=== PATIENT | female | born 1940 | race Caucasian/White ===

== ENCOUNTER → 2016-11-24 | Outpatient (CLI) | payer OTHER, MEDICARE | LOC: RAD 04:21 | DX: Z12.31 Encounter for screening mammogram for malignant neoplasm of breast (principal) ==

== ENCOUNTER → 2017-11-28 | Outpatient (CLI) | payer OTHER, MEDICARE | LOC: RAD 00:15 | DX: Z12.31 Encounter for screening mammogram for malignant neoplasm of breast (principal); I97.2 Postmastectomy lymphedema syndrome ==

== ENCOUNTER → 2017-12-15 | Outpatient (CLI) | payer OTHER, MEDICARE ==
[~2017-12-15] MED LIST: ATENOLOL 100MG100 MG PO; CENTRUM SILVER1 EAC4 PO; MAXZIDE-25 MG1 EACH PO; XALATAN2.5 ML OPHTHALMIC; ZOCOR20 MG PO
== END | disposition home or self-care (01) ==
LOC: ULTRA 12-01 06:10
DX: C50.912 Malignant neoplasm of unspecified site of left female breast (principal); I10 Essential (primary) hypertension; Z79.899 Other long term (current) drug therapy

== ENCOUNTER 2018-01-01 05:31 | Day surgery (SDC) | payer OTHER, MEDICARE ==
[~2018-01-01] VITALS: Ht 147.3 cm; Wt 59.9 kg
--- NOTE | ~2018-01-01 | EKG ---
[address] [address] ELECTROCARDIOGRAM REPORT Name: DAVID ROMERO Room #: 150-4 [facility]#: [id number] Admission: 01/01/18 Attend Phys: Kishan Choe MD Discharge: Date of : 42 Report #: [id number] THIS REPORT FOR: //name// [facility] Test Date: 2018-01-01 Test Time: 06:49:53 Pat Name: DAVID ROMERO Department: Room: 150 4 Gender: F Law Researcher: MIMI : 1940 Requested By: Kishan Choe Order Number: [id number] MD: Neto Reyez Measurements Intervals [place] Rate: 58 P: -9 AR: 181 QRS: -13 QRSD: 87 T: 29 QT: 442 QTc: 435 Interpretive Statements Sinus rhythm Left ventricular hypertrophy Compared to ECG 12/19/2006 14:44:54 No significant changes Electronically Signed On 01-01-2018 7:05:53 CDT by Neto Reyez [email or web address] <ELECTRONICALLY SIGNED> By: Neto Reyez MD 01/01/18 0705 0649 MD ALSION Jacques
--- NOTE | ~2018-01-01 | O ---
[facility] [place] [address] [place] [address] OPERATIVE REPORT Name: DAVID ROMERO ANN Room #: DEP [facility] M..#: [id number] Admission: 01/01/18 Attend Phys: Kishan Choe MD Discharge: 01/01/18 Date of : 42 Report #: [id number] THIS REPORT FOR: //name// CC: Scott Aguila MD DATE OF SERVICE: 01/01/2018 PREOPERATIVE DIAGNOSIS: Carcinoma, left breast. POSTOPERATIVE DIAGNOSIS: Carcinoma, left breast; final pathology pending. OPERATIONS: 1. Lymphatic mapping. 2. Left axillary sentinel lymph node resection x 2. 3. Left total mastectomy. SURGEON: Kishan Choe MD RISK MANAGEMENT DIRECTOR: Cameron Aguilar MS3. SECOND DESK SERGEANT: Felipe Kohli MS3. ANESTHESIA: General. DESCRIPTION OF PROCEDURE: The patient was taken to nuclear medicine and the radiologist injected technetium sulfur colloid into the left breast as per protocol. Lymphoscintigraphy demonstrated a hot spot in the left axilla, which was marked by the radiologist. The radiologist saw some initial activity extending medially, but it never materialized as a definite hot spot. He did find a definite hot spot in the left axilla as noted above. The patient was brought to the operating room for a general anesthetic. Lymphatic mapping was performed using the gamma probe and we confirmed the presence of a left axillary hot spot with a 10-second count of 1267. Next, 5 mL of Lymphazurin blue dye were injected into the left breast near the tumor site using sterile technique with alcohol prep. Next, the left breast and left axilla were widely prepped with ChloraPrep solution. Sterile drapes were applied. A left transverse slightly oblique elliptical incision was made in order to fully encompass the left breast and the skin over the tumor in the medial aspect of the left breast. The skin flaps were developed using electrocautery. The axilla was entered with care being taken to avoid injury to the neurovascular structures. We found 2 sentinel nodes, which were both excised, controlling the blood and lymphatic supply, using Harmonic scalpel. Nixon node #1 had a 10-second count of 4872, [address] [address] OPERATIVE REPORT Name: FERNANDOELISSADAVIDCITLALI Room #: DEP [facility] M.R.#: [id number] Admission: 01/01/18 Attend Phys: Kishan Choe MD Discharge: 01/01/18 Date of : 42 Report #: [id number] it was blue. Nixon node #2 had a 10-second count of 1252, it was not blue. Both were submitted separately to pathology. Palpation from within the axilla revealed no other suspicious nodes nor were there any other blue or radioactive nodes to be found. The post-resection bed count was 12, which was well below 10% of the highest node. Next, the left mastectomy was completed, removing the entire breast together with the pectoralis fascia and the tail of Parnell. The specimen was marked with sutures for orientation purposes and then was given directly to the pathologist. Hemostasis was carefully obtained using electrocautery. The incision was irrigated with warm sterile saline solution. The sponge, instrument and needle counts were reported as correct. A 19-Greek round suction catheter was left under the skin flaps and this was brought out through a separate stab wound. The incision was closed in layers using interrupted 3-0 Vicryl for the subcutaneous layer and running 4-0 PDS for the subcuticular layer. Sterile dressings were applied and the patient was taken to recovery in satisfactory condition. Estimated blood loss was less than 100 mL. <ELECTRONICALLY SIGNED> By: Kishan Choe MD 01/15/18 1534 1128 1154 Kishan Choe MD /nt
[2018-01-01 06:53] LABS: HEMATOCRIT 39.2 % (37.0-47.0); HEMOGLOBIN 13.6 gm/dL (12.0-15.0); MCH 33.1 pg (26.0-34.0); MCHC 34.6 g/dL (28.0-37.0); MCV 95.8 fL (80.0-100.0); RBC 4.1 mil/uL (4.20-5.00); RDW 13.4 % (10.5-14.5); WBC 4.8 thou/uL (4.0-11.0)
[2018-01-01 07:10] LABS: CALCIUM 9.6 mg/dL (8.5-10.1); CREATININE 0.8 mg/dL (0.6-1.0); POTASSIUM 3.9 mmol/L (3.5-5.1)
[2018-01-01 07:16] LABS: ALBUMIN 3.8 g/dL (3.4-5.0); TOTAL BILIRUBIN 0.3 mg/dL (<0.1-1.0); TOTAL PROTEIN 6.7 g/dL (6.4-8.2)
[2018-01-01 07:36] VITALS: BP 146/81
== END 2018-01-01 13:30 | disposition home or self-care (01) ==
LOC: OR 05:31 → TBA 05:34 → OR 09:35
PROVIDERS: Specialist
DX: C50.912 Malignant neoplasm of unspecified site of left female breast (principal); C77.3 Secondary and unspecified malignant neoplasm of axilla and upper limb lymph nodes; I10 Essential (primary) hypertension; E78.5 Hyperlipidemia, unspecified; Z98.41 Cataract extraction status, right eye; Z98.42 Cataract extraction status, left eye; Z98.890 Other specified postprocedural states; Z79.899 Other long term (current) drug therapy
CPT/HCPCS: 50010; 50101; 50386; 50403; 52190; 56524; 56526; 57127; 62110; 62900; 70005

== ENCOUNTER 2018-01-19 05:51 | Day surgery (SDC) | payer OTHER, MEDICARE ==
[~2018-01-19] VITALS: Ht 147.3 cm; Wt 58.1 kg
--- NOTE | ~2018-01-19 | O ---
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 OPERATIONS: 1. Resection of redundant skin and fat/mass left chest wall. 2. Left axillary lymph node dissection. SURGEON: Kishan Choe MD ANESTHESIA: General. DESCRIPTION OF PROCEDURE: Under satisfactory general anesthesia and with the patient in the supine position, the left chest wall and left axilla were widely prepped with ChloraPrep solution. Sterile drapes were applied. The recently placed drain in the left mastectomy area was removed before the prep. The patient had an area of mass effect laterally at the inferior mastectomy flap, which represented redundant skin and fat, which was bothersome to the patient. She wanted that removed at the time of the axillary node dissection. A transverse elliptical incision was made, utilizing the lateral one third of the mastectomy incision and removing the redundant fat and skin, which was submitted as specimen #1. Dissection was carried down into the axilla. A level 1 and level 2 lymph node dissection was performed, controlling the blood and lymphatic supply to the resected axillary tissues using the Harmonic scalpel. The axillary vein; axillary artery; brachial plexus structures; long thoracic nerve; and thoracodorsal nerve, artery and vein were all identified and protected from harm. The specimen was submitted to pathology as specimen #2. Palpation revealed no other suspicious areas. Hemostasis was carefully obtained. The wound was irrigated with warm sterile saline solution. A 19-Tamazight round suction catheter was left in the axilla and this was brought out through a separate stab wound. The incision was closed in layers using interrupted 3-0 Vicryl for the deep layer and running 4-0 PDS for the subcuticular layer. [address] [address] OPERATIVE REPORT Name: DAVID ROMERO ANN Room #: [address] [place] [address]..#: [id number] Admission: 01/19/18 Attend Phys: Kishan Choe MD Discharge: Date of : 42 Report #: [id number] Sterile dressings were applied and the patient was taken to recovery in satisfactory condition. Estimated blood loss was less than 100 mL. By: 0855 [id number] Kishan Choe MD /nt
--- NOTE | ~2018-01-19 | PATH ---
[facility] [place] [address] PATHOLOGY RPT PROCEDURE Name: DAVID ROMERO Room #: DEP [facility] M.R.#: [id number] Admission: 01/19/18 Date of : 42 Discharge: 01/19/18 Report #: [id number] Path Case #: [id number] [facility] Accession Number: [id number] . 01 Material submitted: . PART A: REDUNDANT SKIN AND FAT LEFT CHEST WALL AT MASTECTOMY SITE PART B: LEFT AXILLARY LYMPH NODE DISSECTION . 01 Clinical history: . Carcinoma left breast with metastatic sentinel lymph node, recent mastectomy . 02 Diagnosis: A. "Redundant skin and fat left chest wall at mastectomy site," excision: - Skin and subcutaneous tissue with reactive and reparative / previous mastectomy site changes. - No residual breast parenchyma seen. . B. "Left axillary lymph node dissection," dissection: - Lymph nodes (2) with no evidence of metastatic carcinoma (2 nodes). - Discrete focus of fat necrosis. QRQ/01/24/2018 . 02 Comment: Properly controlled immunohistochemical stains are performed. . AE1/AE3 (B2): negative for metastatic carcinoma CK HOLLIE (B3): negative for metastatic carcinoma CAM5.2 (B4): negative for metastatic carcinoma . (CLW:mgr; 01/24/18) . 02 Electronically signed: . Anna Coleman MD, Pathologist NPI- [id number] . 01 Gross description: . A. The specimen is received in formalin, labeled "David Birdediliacyn, redundant skin and fat left chest wall at mastectomy site". Received is a 59 g segment of yellow-culver fibroadipose tissue with attached pale culver skin measuring 8.4 x 7.4 x 3.4 cm in greatest dimensions. The epidermal surface displays a linear well-healed scar measuring 5.7 cm in length sectioning reveals bright yellow, lobulated cut surfaces with a slight amount of possible fat necrosis underlying the aforementioned scar. The specimen is submitted representatively in cassettes A1 and A2. . B. The specimen is received in formalin, labeled "David Ana, [place] [address] PATHOLOGY RPT PROCEDURE Name: DAVID ROMERO ANN Room #: DEP [facility] M.R.#: [id number] Admission: 01/19/18 Date of : 42 Discharge: 01/19/18 Report #: [id number] Path Case #: [id number] axillary lymph node dissection". Received are two segments of bright yellow lobulated tissue measuring 11.1 x 9.6 x 4.8 cm in aggregate dimensions. Dissection and palpation of the specimen reveals three lymph node candidates ranging in size from 1.0 to 1.7 cm in maximum dimensions. The lymph nodes are submitted as follows: . B1-B2 one bisected lymph node candidate in each cassette B3-B4 one bisected lymph node. (CAA; 01/19/2018) QAC/QAC . 02 CPT . 025255, [id number], [id number] Performed at: [address] [place] [address] [id number] MD Bryan Mares MD Phone: [phone] Performed at: [address] [id number] MD Che Kim MD Phone: [phone]
[2018-01-19 12:57] VITALS: BP 143/78
== END 2018-01-19 09:35 | disposition home or self-care (01) ==
LOC: OR 05:51 → TBA 05:52 → OR 09:35
DX: N64.1 Fat necrosis of breast (principal); L98.7 Excessive and redundant skin and subcutaneous tissue; I10 Essential (primary) hypertension; E78.5 Hyperlipidemia, unspecified; Z98.41 Cataract extraction status, right eye; Z98.42 Cataract extraction status, left eye; Z98.890 Other specified postprocedural states; Z85.3 Personal history of malignant neoplasm of breast; Z79.899 Other long term (current) drug therapy
CPT/HCPCS: 50010; 50101; 50403; 52190; 56524; 56526; 62110; 62900; 70005